=== PATIENT | male | born 1975 | race Caucasian/White ===

== ENCOUNTER 2024-05-11 22:09 | Emergency (ER) | payer SELFPAY ==
[~2024-05-11] VITALS: Ht 170.2 cm; Wt 80.5 kg
[2024-05-12] MEDS: LIDOCAINE 1% MDV 20ML VIAL SC ONE (00:29)
[2024-05-12] MEDS: BOOSTRIX VACCINE (TETANUS/DIPHTH/ACEL. PERTUSSIS) 0.5ML SYR IM ONE (00:53)
[2024-05-12 01:08] VITALS: BP 124/74; TEMP 98.3; O2SAT 98
== END 2024-05-12 01:09 | disposition home or self-care (01) ==
LOC: M ED 22:09
DX: S61.214A Laceration without foreign body of right ring finger without damage to nail, initial encounter (principal); Y92.9 Unspecified place or not applicable; Y93.9 Activity, unspecified; Y99.0 Civilian activity done for income or pay; F17.210 Nicotine dependence, cigarettes, uncomplicated; Z23 Encounter for immunization